=== PATIENT | female | born 1985 | race Caucasian/White ===

== ENCOUNTER → 2018-08-26 14:22 | Outpatient (CLI) | payer OTHER, SELFPAY | PROVIDERS: Visit Provider Nurse Practitioner Family | DX: E66.9 Obesity, unspecified (principal); E78.5 Hyperlipidemia, unspecified; I10 Essential (primary) hypertension; R06.00 Dyspnea, unspecified; R07.9 Chest pain, unspecified | CPT/HCPCS: 93017; 93306 ==

== ENCOUNTER 2024-05-20 18:46 | Emergency (ER) | payer OTHER, SELFPAY ==
--- NOTE | 2024-05-20 18:46 | ECG_ITS ---
APPROVED REPORT Exam: Resting ECG HR:94 bpm ECG Measurements Heart Rate 94 AXES ME 145 P 62 QRSd 88 QRS 58 QT 381 T 53 QTc 433 Conclusion SINUS RHYTHM NORMAL ECG UNCONFIRMED REPORT Electronically signed by : MAYA DE OLIVEIRA, 05/21/2024 06:51:29
[2024-05-20 18:48] VITALS: BP 167/93; PULSE 94; RESP 13; TEMP 36.9; O2SAT 97; BMI 42.7
--- NOTE | 2024-05-20 18:59 | XR_ITS ---
PROCEDURE INFORMATION: Exam: XR Chest Exam date and time: 05/20/2024 7:19 PM Age: 39 years old Clinical indication: Shortness of breath; Additional info: evens MOORE TECHNIQUE: Imaging protocol: Radiologic exam of the chest. Views: 1 view. COMPARISON: No relevant prior studies available. FINDINGS: Limitations: Radiographic technique - mild to moderate. Tubes, catheters and devices: Leads overlying chest. Lungs: No definite consolidation. Pleural spaces: No significant pleural effusion. No pneumothorax. Heart/Mediastinum: No cardiomegaly. Bones/joints: No displaced fracture. Soft tissues: Unremarkable. IMPRESSION: No definite acute cardiopulmonary disease.
--- NOTE | 2024-05-20 19:01 | ED_ITS ---
Discharge Plan Disposition Patient Disposition: Home, Self-Care Condition: Good Prescriptions Prescriptions: No Action triamterene-hydrochlorothiazid [Maxzide] 75-50 mg tablet 1 tab PO DAILY estradiol 1 mg tablet 1 mg PO DAILY bisoprolol fumarate 10 mg tablet 10 mg PO BID bupropion HCl [Wellbutrin SR] 150 mg tablet sustained-release 12 hr 150 mg PO BID cholecalciferol (vitamin D3) 1,000 unit capsule 1,000 unit PO DAILY Prilosec OTC 20 mg tablet,delayed release (DR/EC) 20 mg PO DAILY cyclobenzaprine 10 mg tablet 10 mg PO HS PRN Referrals Follow up/Referrals: Provider,Referral, [Primary Care Provider] - See instructions Activity Restrictions/Add. Instructions Additional Instructions/Restrictions: Return to the emergency department for any worsening signs or symptoms or any worsening chest pain, lease take all medications as prescribed, follow-up with primary care provider regarding type 2 diabetes management, follow-up with marketing sales representative. Clinical Impressions Clinical Impression: Hyperglycemia Chest pain Qualifiers: Chest pain type: other chest pain Qualified Code(s): R07.89 - Other chest pain Stand Alone Forms Stand Alone Forms: Work/School Release Instructions Patient Instructions: DI for Atypical Chest Pain Print Language Print Language: Cymro Discharge ED Provider: Clemente Gamboa HPI <FRAN Voss - Last Filed: 05/20/24 22:19> General Chief Complaint: Chest Pain Stated Complaint: CP Time Seen by Provider: 05/20/24 18:58 Mode of Arrival: Ambulatory Source of Information: Patient Limitations: No Limitations Description of Symptoms (Recalled from ER Triage Doc. by RN): pt presents to ED with c/o chest pain, shortness of air. pt reports symptoms ongoing since friday. pt reports she has been seen in [place] [facility] and [facility]. pt reports that she is scheduled to see dr alvarado but has not been to the appt yet. History of Present Illness HPI narrative: 39-year-old female presents emergency department with chest pain shortness of breath, nausea, no vomiting, occasional lightheadedness, and diarrhea that started today. Patient states the chest pain has been constant, she denies any cough, gesturing, sore throat, fever chills, recent illness, no abdominal pain, no urinary type symptomatology, no hematuria, hematochezia or melena. Past medical history consistent with anxiety/depression, GERD, patient was seen in a outside emergency department as well as urgent care facility was prescribed prednisone been taking medication as prescribed, she has follow-up slated with cardiology, he has prior history of hypertension, but is not on any the hypertensives. She denies any alcohol tobacco or drug use, initial triage vitals are unremarkable. Chest pain is in the center of the chest nonradiating Related Data Home Medications ?Medication ?Instructions ?Recorded ?Confirmed bisoprolol fumarate 10 mg tablet 10 mg PO BID 08/26/18 08/26/18 bupropion HCl 150 mg tablet,12 hr 150 mg PO BID 08/26/18 08/26/18 sustained-release (Wellbutrin SR) cholecalciferol (vitamin D3) 25 1,000 unit PO DAILY 08/26/18 08/26/18 mcg (1,000 unit) capsule cyclobenzaprine 10 mg tablet 10 mg PO HS PRN 08/26/18 08/26/18 estradiol 1 mg tablet 1 mg PO DAILY 08/26/18 08/26/18 omeprazole magnesium 20 mg 20 mg PO DAILY 08/26/18 08/26/18 tablet,delayed release (Prilosec OTC) triamterene 75 1 tab PO DAILY 08/26/18 08/26/18 mg-hydrochlorothiazide 50 mg tablet (Maxzide) Allergies Allergy/AdvReac Type Severity Reaction Status Date / Time cephalexin (From Keflex) Allergy Mild Verified 08/26/18 13:40 PFSH <FRAN Voss - Last Filed: 05/20/24 22:19> [facility] Disclaimer: The information contained in this section may have been updated after the patient was seen, as this information can be updated by other users. Social History Smoking Status: Never smoker alcohol intake: current alcohol intake frequency: holidays/special occasions only substance use type: denies use current occupational status: employed Travel in the last 8 weeks: Inside the [place] <FRAN Voss - Last Filed: 05/20/24 22:19> ROS Obtained: Yes All systems reviewed & no additional complaints except as documented Physical Exam <FRAN Voss - Last Filed: 05/20/24 22:19> General General appearance: alert and in no apparent distress Head Head exam: atraumatic and normocephalic Eye Eye exam: Present normal appearance, PERRL and EOMI Neck Neck exam: Present full ROM; Absent meningismus Chest Chest inspection: Present normal inspection Respiratory Respiratory exam: Absent respiratory distress, wheezes, stridor, accessory muscle use or prolonged expiratory phase Cardiovascular Cardiovascular exam: Present regular rate, normal rhythm and other (Pulses equal and symmetric in bilateral upper and lower extremities) Abdominal Exam Abdominal exam: Absent distention, tenderness, guarding, rebound or rigidity Extremities Exam Extremities exam: Absent edema Neurological Exam Neurological exam: Present alert Psychiatric Psychiatric exam: Present normal affect Skin Skin exam: Present warm and dry HEART Score <FRAN Voss - Last Filed: 05/20/24 22:19> HEART Score HEART Score assessment performed?: Yes HEART Score: 1 <Clemente Gamboa MD - Last Filed: 05/20/24 23:28> HEART Score HEART Score: 1 Critical Care <FRAN Voss - Last Filed: 05/20/24 22:19> Critical Care Time Critical Care Time: No Medical Decision Making <FRAN Voss - Last Filed: 05/20/24 22:19> Medical Records Medical records reviewed: Yes I reviewed the patient's medical records. Jorge Inquiry Pt receiving controlled substance: No Jorge was queried for this patient: No Vital Signs Vital Signs: 05/20/24 18:48 05/20/24 19:02 05/20/24 19:30 Temperature 98.4 F Temperature Source Oral Pulse Rate 87 88 Pulse Rate [Left Radial] 94 H Respiratory Rate 13 17 Blood Pressure 172/81 H 149/84 H Blood Pressure [Right Arm] 167/93 H Blood Pressure Mean 120 Blood Pressure Mean [Right Arm] 117 Blood Pressure Source 02 Sat by Pulse Oximetry 97 97 97 Oxygen Delivery Method Room Air 05/20/24 20:00 05/20/24 22:23 Temperature 98.4 F Temperature Source Oral Pulse Rate 88 77 Pulse Rate [Left Radial] Respiratory Rate 22 20 Blood Pressure 134/72 151/95 H Blood Pressure [Right Arm] Blood Pressure Mean Blood Pressure Mean [Right Arm] Blood Pressure Source Automatic Cuff 02 Sat by Pulse Oximetry 97 Oxygen Delivery Method Room Air Lab Data Lab results reviewed: Yes I reviewed the patient's lab results. Labs: Lab Results 05/20/24 18:52: WBC 8.1, RBC 5.17, Hgb 15.0, Hct 45.6, MCV 88.1, MCH 29.1, MCHC 33.0, RDW 14.1, Plt Count 208, MPV 7.9, Neut % (Auto) 83.7 H, Lymph % (Auto) 11.0, [place] % (Auto) 3.9, Eos % (Auto) 1.1, Baso % (Auto) 0.3, Neut # (Auto) 6.8, Lymph # (Auto) 0.9, [place] # (Auto) 0.3, Eos # (Auto) 0.1, Baso # (Auto) 0.0, PT 11.6, INR 1.04, D-Dimer 0.69 H, Sodium 137, Potassium 3.7, Chloride 104, Carbon Dioxide 21 L, Anion Gap 15.7 H, BUN 16, Creatinine 0.80, Estimated Creat Clear 97, Estimated GFR 79, Est GFR ( Amer) 96, Glucose 420 H*, Calcium 9.3, Magnesium 1.9, Total Bilirubin 0.6, AST 39 H, ALT 47, Alkaline Phosphatase 142 H , Troponin I < 0.01, NT-Pro-B Natriuret Pep 96.0, Total Protein 7.4, Albumin 4.1, Globulin 3.3 H, Albumin/Globulin Ratio 1.2, Lipase 158, Serum HCG, Qual Negative, HIV 1&2 Antibody Rapid Nonreactive 05/20/24 19:30: SARS-CoV-2 (PCR) Not detected, Influenza A Untype (PCR) Not detected, Influenza Type B (PCR) Not detected 05/20/24 21:44: Troponin I < 0.01 05/20/24 18:52 05/20/24 18:52 Response Orders (Tests/Meds): ED MEDICATIONS Discontinued Medications Generic Name Dose Route Start Last Admin Trade Name Jaidenq PRN Reason Stop Dose Admin Aspirin 325 mg 05/20/24 19:06 05/20/24 19:26 Aspirin 325mg Tablet PO 05/20/24 19:07 325 mg ONCE ONE Administration Insulin Human Regular 5 unit 05/20/24 21:08 05/20/24 21:27 Insulin Human Regular 100 Units/Ml 10ml Vial IV 05/20/24 21:09 Not Given ONCE ONE Insulin Human Regular 4 unit 05/20/24 21:08 05/20/24 21:31 Insulin Human Regular 100 Units/Ml 10ml Vial IV 05/20/24 21:09 Not Given ONCE ONE Insulin Human Regular 2 unit 05/20/24 21:26 05/20/24 21:28 Insulin Human Regular 100 Units/Ml 10ml Vial IV 05/20/24 21:27 2 unit ONCE ONE Administration Iopamidol 70 ml 05/20/24 19:45 05/20/24 19:47 Iopamidol-370 (76%);100ml Bottle IV 05/20/24 19:46 70 ml ONCE ONE Administration Ondansetron HCl 4 mg 05/20/24 19:06 05/20/24 19:24 Ondansetron 4mg/2ml Vial IV 05/20/24 19:07 4 mg ONCE ONE Administration Sodium Chloride 50 ml 05/20/24 19:45 05/20/24 19:47 0.9 % Sodium Chloride 50 Ml Vial IV 05/20/24 19:46 50 ml ONCE ONE Administration Sodium Chloride 10 ml 05/20/24 19:45 05/20/24 19:46 Sodium Chloride 0.9% 10ml Syr (Rad Only) IV 06/19/24 19:44 10 ml NEEDED PRN Administration Maintain IV Site ORDERS Category Date Time Status CTA Chest [CT angio chest PE protocol] Stat Cat Scan 05/20/24 19:33 Completed XR chest portable Stat Exams 05/20/24 18:59 Completed Complete Blood Count Auto Diff Stat Lab 05/20/24 18:52 Completed Comprehensive Metabolic Panel Stat Lab 05/20/24 18:52 Completed D-Dimer Stat Lab 05/20/24 18:52 Completed HCG Qualitative, Serum Stat Lab 05/20/24 18:52 Completed HIV (1&2) Antibody Rapid Stat Lab 05/20/24 18:52 Completed Hep C Ab with Reflex to RNA Stat Lab 05/20/24 18:52 Received Lipase Stat Lab 05/20/24 18:52 Completed Magnesium Stat Lab 05/20/24 18:52 Completed NT Pro Brain Natriuretic Pep. Stat Lab 05/20/24 18:52 Completed POC Glucose,Bedside Stat Lab 05/20/24 21:15 Ordered PT INR [Prothrombin Time INR] Stat Lab 05/20/24 18:52 Completed Rapid PCR Covid and Flu A/B Stat Lab 05/20/24 19:30 Completed Troponin I Q3H Lab 05/20/24 21:44 Completed Troponin I Stat Lab 05/20/24 18:52 Completed MDM Narrative Medical Decision Narrative: 39-year-old female presents emerged part with chest pain shortness of breath since Friday, differential diagnose include but not limited to, ACS, cardiac arrhythmia, electrolyte disturbance, pneumothorax, pneumonia, costochondritis, GERD, gastritis, anxiety type reaction, panic attack, acute URI. I discussed patient case with attending physician Dr. Gamboa Obtain basic laboratory studies, full cardiac workup to include EKG, CXR, proBNP, PT/INR, D-dimer, troponin, hCG serum. I along the attending physician reviewed the patient's EKG, NSR at 94 bpm, parable within normals, QT interval within normals there is no STEMI. CBC unremarkable PT/INR are normal limits D-dimer is elevated at 0.69 CMP notable for hyperglycemia at 420, slight elevation in the patient's AST and ALP level at 39/142 respectively, likely reactive. Will obtain CTA chest with and without contrast PE protocol further evaluate/characterization due to elevated D-dimer chest pain shortness of breath. Troponin within normal limit Serum hCG qualitative is negative. Influenza A and B are negative COVID-19 is negative. I reviewed the patient's chest x-ray along the corresponding radiologic report there is no definitive acute cardiopulmonary disease. I discussed these results with the patient and family at the bedside, talked about her hyperglycemia, patient states she forgot to mention she was a type II diabetic , she has not been on any antihyperglycemic's, due to insurance purposes, last A1c was performed approximately 2 months ago and was approximately 9 something . Will give patient IV 2 units insulin dose here in the emergency department for hyperglycemia. I reviewed the patient's CTA chest with and without contrast along the corresponding radiologic report, there is no CT evidence of pulmonary embolism, there is a calcified granuloma in the right upper lobe, no pleural effusion, no pneumothorax, too few small to characterize lesions, I discussed the results with the patient and family at the bedside patient and family in agreement current treatment plan/discharge plan, patient has remained hemodynamically stable without her time in the emergency department, troponin negative x 2, EKG negative, low risk for any adverse cardiac event, heart score is 1. Patient will follow-up with PCP as directed, return to the emergency department for any worsening signs or symptoms, will follow-up with PCP regarding her type 2 diabetes management, patient and family voiced understanding agreement current treatment plan/discharge plan. <Clemente Gamboa MD - Last Filed: 05/20/24 23:28> Vital Signs Vital Signs: 05/20/24 18:48 05/20/24 19:02 05/20/24 19:30 Temperature 98.4 F Temperature Source Oral Pulse Rate 87 88 Pulse Rate [Left Radial] 94 H Respiratory Rate 13 17 Blood Pressure 172/81 H 149/84 H Blood Pressure [Right Arm] 167/93 H Blood Pressure Mean 120 Blood Pressure Mean [Right Arm] 117 Blood Pressure Source 02 Sat by Pulse Oximetry 97 97 97 Oxygen Delivery Method Room Air 05/20/24 20:00 05/20/24 22:23 Temperature 98.4 F Temperature Source Oral Pulse Rate 88 77 Pulse Rate [Left Radial] Respiratory Rate 22 20 Blood Pressure 134/72 151/95 H Blood Pressure [Right Arm] Blood Pressure Mean Blood Pressure Mean [Right Arm] Blood Pressure Source Automatic Cuff 02 Sat by Pulse Oximetry 97 Oxygen Delivery Method Room Air Lab Data Labs: Lab Results 05/20/24 18:52: WBC 8.1, RBC 5.17, Hgb 15.0, Hct 45.6, MCV 88.1, MCH 29.1, MCHC 33.0, RDW 14.1, Plt Count 208, MPV 7.9, Neut % (Auto) 83.7 H, Lymph % (Auto) 11.0, [place] % (Auto) 3.9, Eos % (Auto) 1.1, Baso % (Auto) 0.3, Neut # (Auto) 6.8, Lymph # (Auto) 0.9, [place] # (Auto) 0.3, Eos # (Auto) 0.1, Baso # (Auto) 0.0, PT 11.6, INR 1.04, D-Dimer 0.69 H, Sodium 137, Potassium 3.7, Chloride 104, Carbon Dioxide 21 L, Anion Gap 15.7 H, BUN 16, Creatinine 0.80, Estimated Creat Clear 97, Estimated GFR 79, Est GFR ( Amer) 96, Glucose 420 H*, Calcium 9.3, Magnesium 1.9, Total Bilirubin 0.6, AST 39 H, ALT 47, Alkaline Phosphatase 142 H , Troponin I < 0.01, NT-Pro-B Natriuret Pep 96.0, Total Protein 7.4, Albumin 4.1, Globulin 3.3 H, Albumin/Globulin Ratio 1.2, Lipase 158, Serum HCG, Qual Negative, HIV 1&2 Antibody Rapid Nonreactive 05/20/24 19:30: SARS-CoV-2 (PCR) Not detected, Influenza A Untype (PCR) Not detected, Influenza Type B (PCR) Not detected 05/20/24 21:44: Troponin I < 0.01 Response Orders (Tests/Meds): ED MEDICATIONS Discontinued Medications Generic Name Dose Route Start Last Admin Trade Name Freq PRN Reason Stop Dose Admin Aspirin 325 mg 05/20/24 19:06 05/20/24 19:26 Aspirin 325mg Tablet PO 05/20/24 19:07 325 mg ONCE ONE Administration Insulin Human Regular 5 unit 05/20/24 21:08 05/20/24 21:27 Insulin Human Regular 100 Units/Ml 10ml Vial IV 05/20/24 21:09 Not Given ONCE ONE Insulin Human Regular 4 unit 05/20/24 21:08 05/20/24 21:31 Insulin Human Regular 100 Units/Ml 10ml Vial IV 05/20/24 21:09 Not Given ONCE ONE Insulin Human Regular 2 unit 05/20/24 21:26 05/20/24 21:28 Insulin Human Regular 100 Units/Ml 10ml Vial IV 05/20/24 21:27 2 unit ONCE ONE Administration Iopamidol 70 ml 05/20/24 19:45 05/20/24 19:47 Iopamidol-370 (76%);100ml Bottle IV 05/20/24 19:46 70 ml ONCE ONE Administration Ondansetron HCl 4 mg 05/20/24 19:06 05/20/24 19:24 Ondansetron 4mg/2ml Vial IV 05/20/24 19:07 4 mg ONCE ONE Administration Sodium Chloride 50 ml 05/20/24 19:45 05/20/24 19:47 0.9 % Sodium Chloride 50 Ml Vial IV 05/20/24 19:46 50 ml ONCE ONE Administration Sodium Chloride 10 ml 05/20/24 19:45 05/20/24 19:46 Sodium Chloride 0.9% 10ml Syr (Rad Only) IV 06/19/24 19:44 10 ml NEEDED PRN Administration Maintain IV Site ORDERS Category Date Time Status CTA Chest [CT angio chest PE protocol] Stat Cat Scan 05/20/24 19:33 Completed XR chest portable Stat Exams 05/20/24 18:59 Completed Complete Blood Count Auto Diff Stat Lab 05/20/24 18:52 Completed Comprehensive Metabolic Panel Stat Lab 05/20/24 18:52 Completed D-Dimer Stat Lab 05/20/24 18:52 Completed HCG Qualitative, Serum Stat Lab 05/20/24 18:52 Completed HIV (1&2) Antibody Rapid Stat Lab 05/20/24 18:52 Completed Hep C Ab with Reflex to RNA Stat Lab 05/20/24 18:52 Received Lipase Stat Lab 05/20/24 18:52 Completed Magnesium Stat Lab 05/20/24 18:52 Completed NT Pro Brain Natriuretic Pep. Stat Lab 05/20/24 18:52 Completed POC Glucose,Bedside Stat Lab 05/20/24 21:15 Ordered PT INR [Prothrombin Time INR] Stat Lab 05/20/24 18:52 Completed Rapid PCR Covid and Flu A/B Stat Lab 05/20/24 19:30 Completed Troponin I Q3H Lab 05/20/24 21:44 Completed Troponin I Stat Lab 05/20/24 18:52 Completed MDM Narrative Medical Decision Narrative: 39-year-old female presents emerged part with chest pain shortness of breath since Friday, differential diagnose include but not limited to, ACS, cardiac arrhythmia, electrolyte disturbance, pneumothorax, pneumonia, costochondritis, GERD, gastritis, anxiety type reaction, panic attack, acute URI. I discussed patient case with attending physician Dr. Gamboa Obtain basic laboratory studies, full cardiac workup to include EKG, CXR, proBNP, PT/INR, D-dimer, troponin, hCG serum. I along the attending physician reviewed the patient's EKG, NSR at 94 bpm, parable within normals, QT interval within normals there is no STEMI. CBC unremarkable PT/INR are normal limits D-dimer is elevated at 0.69 CMP notable for hyperglycemia at 420, slight elevation in the patient's AST and ALP level at 39/142 respectively, likely reactive. Will obtain CTA chest with and without contrast PE protocol further evaluate/characterization due to elevated D-dimer chest pain shortness of breath. Troponin within normal limit Serum hCG qualitative is negative. Influenza A and B are negative COVID-19 is negative. I reviewed the patient's chest x-ray along the corresponding radiologic report there is no definitive acute cardiopulmonary disease. I discussed these results with the patient and family at the bedside, talked about her hyperglycemia, patient states she forgot to mention she was a type II diabetic , she has not been on any antihyperglycemic's, due to insurance purposes, last A1c was performed approximately 2 months ago and was approximately 9 something . Will give patient IV 2 units insulin dose here in the emergency department for hyperglycemia. I reviewed the patient's CTA chest with and without contrast along the corresponding radiologic report, there is no CT evidence of pulmonary embolism, there is a calcified granuloma in the right upper lobe, no pleural effusion, no pneumothorax, too few small to characterize lesions, I discussed the results with the patient and family at the bedside patient and family in agreement current treatment plan/discharge plan, patient has remained hemodynamically stable without her time in the emergency department, troponin negative x 2, EKG negative, low risk for any adverse cardiac event, heart score is 1. Patient will follow-up with PCP as directed, return to the emergency department for any worsening signs or symptoms, will follow-up with PCP regarding her type 2 diabetes management, patient and family voiced understanding agreement current treatment plan/discharge plan. I, Clemente Gamboa MD, was present at the time of patient's arrival and agree with plan and management as stated above.
[2024-05-20 19:02] VITALS: BP 172/81; PULSE 87; O2SAT 97
[2024-05-20 19:08] LABS: Basophils % 0.3 % (0.1-2.0); Eosinophils # 0.1 K/mm3 (0.0-0.4); Eosinophils % 1.1 % (0.1-12.0); Hematocrit 45.6 % (37.0-47.0); Lymphocytes # 0.9 K/mm3 (0.7-4.5); Mean Corpuscular Hemoglobin 29.1 pg (27.0-31.2); Mean Corpuscular Volume 88.1 fl (81-99); Mean Platelet Volume 7.9 fl (7.4-10.4); Monocytes # 0.3 K/mm3 (0.1-1.0); Monocytes % 3.9 % (1.7-9.3); Neutrophils # 6.8 K/mm3 (1.8-7.8); Neutrophils % 83.7 % (37.0-80.0); Platelet Count 208 K/mm3 (142-424); Red Blood Count 5.17 M/mm3 (4.20-5.40); Red Cell Distribution Width 14.1 % (11.5-17.5); White Blood Count 8.1 K/mm3 (4.8-10.8)
[2024-05-20 19:14] LABS: INR 1.04 (0.9-1.1); Prothrombin Time 11.6 seconds (10.1-12.5)
[2024-05-20 19:16] LABS: Chloride 104 mmol/L (98-107)
[2024-05-20 19:17] LABS: Potassium 3.7 mmoL/L (3.5-5.1); Sodium 137 mmol/L (136-145)
[2024-05-20 19:19] LABS: Alanine Aminotransferase 47 U/L (12-78); Aspartate Amino Transferase 39 U/L (14-36); Blood Urea Nitrogen 16 mg/dl (7-17); Creatinine Clearance Estimated 97 mL/min (50-200); Estimated Glomerular Filt Rate 79 ml/min (>60); GFR (African American) 96 ML/MIN (>60); HCG Qualitative, Serum Negative (Negative)
[2024-05-20 19:20] LABS: Alkaline Phosphatase 142 U/L (38-126); Anion Gap 15.7 mEq/L (5-15); Bilirubin,Total 0.6 mg/dl (0.2-1.3); Calcium 9.3 mg/dl (8.4-10.2); Carbon Dioxide 21 mmol/L (22.0-30.0); Lipase 158 U/L (23-300); Magnesium 1.9 mg/dl (1.6-2.3); Total Protein,Serum 7.4 g/dl (6.3-8.2)
[2024-05-20 19:21] LABS: Glucose 420 mg/dl (74-100)
--- NOTE | 2024-05-20 19:22 | PC.NURSE ---
Addendum entered by Janis Page RN 05/20/24 19:23: no new orders at this time Original Note: Lab called RN to report critical glucose of 420. RN report value to
[2024-05-20] MEDS: ONDANSETRON 4MG/2ML VIAL 4 MG IV (19:24)
[2024-05-20] MEDS: ASPIRIN 325MG TABLET 325 MG PO (19:26)
[2024-05-20 19:29] LABS: D-Dimer 0.69 ug/mL (0.0-0.5)
[2024-05-20 19:30] VITALS: BP 149/84; PULSE 88; RESP 17; O2SAT 97
--- NOTE | 2024-05-20 19:33 | CT_ITS ---
PROCEDURE INFORMATION: Exam: CTA Chest With Contrast Exam date and time: 05/20/2024 7:43 PM Age: 39 years old Clinical indication: Shortness of breath; Additional info: Shortness of air, chest pain TECHNIQUE: Imaging protocol: Computed tomographic angiography of the chest with contrast. Exam focused on the arteries. 3D rendering (Not supervised by radiologist): MIP and/or 3D reconstructed images were created by the technologist. Radiation optimization: All CT scans at this facility use at least one of these dose optimization techniques: automated exposure control; mA and/or kV adjustment per patient size (includes targeted exams where dose is matched to clinical indication); or iterative reconstruction. Contrast material: ISOVUE; Contrast volume: 70 ml; Contrast route: INTRAVENOUS (IV); COMPARISON: CR XR CHEST PORTABLE 05/20/2024 7:19 PM FINDINGS: Pulmonary arteries: No pulmonary embolism. Aorta: Unremarkable. No aneurysm. Lungs: No consolidation. Calcified granuloma within RIGHT upper lobe. Pleural spaces: No significant pleural effusion. No pneumothorax. Heart: No cardiomegaly. No pericardial effusion. Lymph nodes: No pathologically enlarged lymph nodes. Liver: Fatty infiltration. Gallbladder and biliary ducts: Cholecystectomy. Kidneys: Few renal calculi. Few too small to characterize lesions within kidneys (<1 cm). Bones/joints: Mild degenerative changes of spine. No acute fracture. Soft tissues: Unremarkable. IMPRESSION: No CT evidence of pulmonary embolism. COMMENTS: Consistent with the [employer]'s Incidental Findings Committee white paper (J Am Ernestina Radiol 2018): Any incidental renal lesion less than 1 cm or classified as too small to characterize, or any incidental cystic renal lesion characterized as simple-appearing, is likely benign. No follow-up imaging is recommended for these lesions per consensus recommendations based on imaging criteria.
--- NOTE | 2024-05-20 19:39 | PC.NURSE ---
swab obtained and sent to lab
[2024-05-20 19:40] LABS: Coronavirus 19, PCR Not Detected (NotDetected); Influenza A, PCR Not Detected (NotDetected); Influenza B, PCR Not Detected (NotDetected)
[2024-05-20 19:42] LABS: HIV (1&2) Antibody Rapid NONREACTIVE (NONREACTIVE)
[2024-05-20] MEDS: SODIUM CHLORIDE 0.9% 10ML SYR (RAD ONLY) 10 ML IV (19:46)
[2024-05-20] MEDS: 0.9 % SODIUM CHLORIDE 50 ML VIAL IV (19:47)
[2024-05-20] MEDS: IOPAMIDOL-370 (76%);100ML BOTTLE 70 ML IV (19:47)
[2024-05-20 19:50] LABS: Albumin Level 4.1 g/dl (3.5-5.0); Albumin/Globulin Ratio 1.2 (1.1-1.8); Globulin 3.3 g/dL (1.3-3.2)
[2024-05-20 19:52] LABS: Troponin I < 0.01 ng/ml (0.00-0.034)
[2024-05-20 20:00] VITALS: BP 134/72; PULSE 88; RESP 22; O2SAT 97
[2024-05-20] MEDS: INSULIN HUMAN REGULAR 100 UNITS/ML 10ML VIAL 2 UNIT IV (21:28)
[2024-05-20 22:15] LABS: Troponin I < 0.01 ng/ml (0.00-0.034)
[2024-05-20 22:23] VITALS: BP 151/95; PULSE 77; RESP 20; TEMP 36.9; O2SAT 97
[2024-05-22 12:12] LABS: HCV Ab Non Reactive (Non Reactive)
== END 2024-05-20 22:35 | disposition home or self-care (01) ==
PROVIDERS: Physician Assistant; Emergency Provider Student in an Organized Health Care Education/Training Program
DX: R73.9 Hyperglycemia, unspecified (principal); R07.9 Chest pain, unspecified; R06.02 Shortness of breath; R11.0 Nausea; R42 Dizziness and giddiness; R19.7 Diarrhea, unspecified
CPT/HCPCS: 71045; 71275; 80053; 83690; 83735; 83880; 84484; 84703; 85025; 85378; 85610; 86803; 87389; 87636; 93005; 96374; 99285; J2405; Q9967